=== PATIENT | male | born 1985 | race Caucasian/White ===

== ENCOUNTER 2025-06-18 14:50 | Outpatient (AMB) | payer OTHER, SELFPAY ==
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
[2025-06-18 15:24] VITALS: BP 117/74; PULSE 71; RESP 16; TEMP 36.6; O2SAT 100; BMI 29.1
--- OUTSIDE RECORDS SUMMARY | 2025-06-18 18:06 | XMS_ITS ---
Author Name [facility] Organization Unknown Problems Problem Status Onset Date Problem Type Date of Resoluti on Source Panic attack active EncounterDiagnosisAct HHCCT PTSD (post-traumatic stress disorder) active EncounterDiagnosisAct HH CCT Encounters Encounter Type Encounter Reason Primary Diagnosis Location Date Ambulatory [place] [facility] 01/05/2025 Care Team Organization Name Specialty Phone Email Start Date End [facility] 04/19/2025 [place] [facility] 01/05/2025 02/03/2025 [facility] [place]05/2025 [place] 01/05/2025
--- OUTSIDE RECORDS SUMMARY | 2025-06-18 18:06 | XMS_ITS | Clinical Summary ---
Author Organization [facility] Address [address] [place] [address] Care Team Providers Care Box Covering Machine Operator Name Role Phone John Craig MD Primary Care Provider Social History Tobacco Use Types Packs/Day Years Used Date Smoking Tobacco: Never Assessed Sex and Gender Information Value Date Recorded Sex Assigned at Not on file Legal Sex Male 4:48 PM EDT Gender Identity Not on file Sexual Orientation Not on file Last Filed Vital Signs Vital Sign Reading Time Taken Comments Blood Pressure 145/82 01/05/2025 11:22 AM EDT Pulse 123 01/05/2025 11:22 AM EDT Temperature 36.2 C (97.1 F) 01/05/2025 11:22 AM EDT Respiratory Rate 18 01/05/2025 11:22 AM EDT Oxygen Saturation 99% 01/05/2025 11:22 AM EDT Inhaled Oxygen Concentration - - Weight - - Height - - Body Mass Index - - Plan of Treatment Health Maintenance Due Date Last Done Comments Hepatitis C Virus Screening 1986 DTaP/Tdap/Td Vaccines (1 - Tdap) 2005 Hepatitis B Vaccines (1 of 3 - 19+ 3-dose series) 2005 Influenza Vaccine 01/26/2025 02/27/2020, , 03/26/2016, Additional history exists COVID-19 Vaccine (2024- season) 2025 HIV Screening Completed 05/13/2016 HPV Vaccines (No Doses Required) Completed Pneumococcal Vaccine: Pediatric (0-5 Years) and At-Risk Patients (6 to 49 Years) Aged Out No longer eligible based on patient's age to complete this topic Insurance [facility] [employer] [place] [id number] Care Teams Box Covering Machine Operator Relationship Specialty Start Date End Date John Craig MD [address] [place] [address] [place] [address] PCP - General Family Medicine 01/05/25
== END 2025-06-18 16:10 | disposition home or self-care (01) ==
LOC: HO.HMCFM 14:50
PROVIDERS: PCP Family Medicine; Visit Provider Family Medicine
DX: J47.9 Bronchiectasis, uncomplicated (principal); F10.21 Alcohol dependence, in remission; F41.8 Other specified anxiety disorders; M54.9 Dorsalgia, unspecified; G47.30 Sleep apnea, unspecified; R53.83 Other fatigue; Z87.898 Personal history of other specified conditions; K21.9 Gastro-esophageal reflux disease without esophagitis; K29.70 Gastritis, unspecified, without bleeding; F43.10 Post-traumatic stress disorder, unspecified

== ENCOUNTER → 2025-06-18 14:50 | Outpatient (BNVA) | payer OTHER, SELFPAY | PROVIDERS: PCP Family Medicine; Visit Provider Family Medicine | DX: K21.9 Gastro-esophageal reflux disease without esophagitis (principal); F41.8 Other specified anxiety disorders; J47.9 Bronchiectasis, uncomplicated; M54.9 Dorsalgia, unspecified; G47.30 Sleep apnea, unspecified; R53.83 Other fatigue; K29.70 Gastritis, unspecified, without bleeding; F10.21 Alcohol dependence, in remission; F43.10 Post-traumatic stress disorder, unspecified; Z87.898 Personal history of other specified conditions; Z13.31 Encounter for screening for depression; Z13.39 Encounter for screening examination for other mental health and behavioral disorders; Z71.89 Other specified counseling | CPT/HCPCS: 96127; 96160; 99202 ==

== ENCOUNTER 2025-06-19 08:23 | Outpatient (REF) | payer OTHER, SELFPAY ==
--- OUTSIDE RECORDS SUMMARY | 2025-06-19 08:31 | XMS_ITS | Clinical Summary ---
Author Organization [facility] Address [address] [place] [address] Care Team Providers Care Weigher Operator Name Role Phone John Craig MD [...] patient's age to complete this topic Insurance [facility] [employer] [place] [id number] Care Teams Weigher Operator Relationship Specialty Start Date End Date John Craig MD [address] [place] [address] [place] [address] PCP - General Family Medicine 01/05/25
[2025-06-19 11:21] LABS: Appearance Urine Clear; Glucose Urine UA Negative (Negative); PH 6.0 (5.0-9.0); Specific Gravity - Urine 1.010 (1.005-1.025)
[2025-06-19 11:59] LABS: Alanine Aminotransferase 54 U/L (0-40); Albumin Level 4.4 g/dL (3.5-5.0); Alkaline Phosphatase 79 U/L (39-117); Anion Gap 9 (12-20); Aspartate Amino Transferase 41 U/L (5-37); Blood Urea Nitrogen 15 mg/dL (9-16); Calcium 9.6 mg/dL (8.4-10.2); Carbon Dioxide 28 mmol/L (22-29); Chloride 105 mmol/L (96-108); Cholesterol 153 mg/dL (<200); Estimated Glomerular Filt Rate > 60; HDL Cholesterol 46 mg/dL (>40); Iron 102 mcg/dL (45-160); Percent Iron Saturation 46 % (15-50); Potassium 4.3 mmol/L (3.3-5.1); Sodium 138 mmol/L (135-145); Total Iron Binding Capacity 221 mcg/dL (228-428); Total Protein 7.4 g/dL (6.5-8.0); Triglycerides 76 mg/dL (<150); Unsaturated Iron Binding 119 ug/dL
== END 2025-06-19 08:24 | disposition home or self-care (01) ==
LOC: HO.WFDLDS 08:23
PROVIDERS: Visit Provider Family Medicine
DX: Z00.00 Encounter for general adult medical examination without abnormal findings (principal); I10 Essential (primary) hypertension; R53.83 Other fatigue; Z13.0 Encounter for screening for diseases of the blood and blood-forming organs and certain disorders involving the immune mechanism
CPT/HCPCS: 36415; 80053; 80061; 81003; 82043; 82570; 83540; 84402; 84403; 84443; 85652; 86141